=== PATIENT | male | born 1980 | race Caucasian/White ===

== ENCOUNTER 2016-03-16 05:59 | Emergency (ER) | payer OTHER ==
[~2016-03-16] VITALS: Ht 170.2 cm; Wt 84.0 kg
[~2016-03-16 05:59] MED LIST: IBUP-1542 PO; PHEN177L2 PO; POLY10DR19 RIGHT EYE
[2016-03-16 06:03] VITALS: Ht 170.2 cm; Wt 84.0 kg
[2016-03-16] MEDS ORDERED: ONDANSETRON (ODT) 4 MG TAB ODT STA (06:52)
[2016-03-16] MEDS ORDERED: MECLIZINE 12.5 MG TAB PO ONE (07:00)
[2016-03-16] MEDS ORDERED: ONDA4TAB14 PO (07:07)
[2016-03-16] MEDS ORDERED: MECL12.574 PO (07:07)
--- NOTE | 2016-03-16 07:21 | ERD ---
ER Documentation Chief Complaint Date/Time DATE: 03/16/16 TIME: 07:18 Chief Complaint DIZZINESS WITH SHAKING FELL THIS MORNING AT 0430 am HPI This is a 35-year-old male presenting to the emergency department complaining of dizziness since 430 this morning. Patient states that he feels as if the room is spinning when he turns his head. He admits to having nausea. Denies any tinnitus or headache. He states that he also had a few episodes of feeling shaky that lasted a few minutes. Patient denies any vomiting or diarrhea. Denies any neuro deficits. ROS All systems reviewed and are negative except as per history of present illness. 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 12/18/15 Polymyxin B Sulfate-TMP* (Polymyxin B-TMP Eye Drops*) 10 Ml Drops, 1 DROP RIGHT EYE QID for 7 Days, EA Prov:VAUGHN PATEL NP 05/24/15 Reported Medications [none] Unknown Strength No Conflict Check 05/24/15 Allergies Allergies: Coded Allergies: No Known Allergy (Unverified , 05/24/15) PMhx/Soc History of Surgery: No Anesthesia Reaction: No Hx Neurological Disorder: No Hx Respiratory Disorders: No Hx Cardiac Disorders: No Hx Psychiatric Problems: No Hx Miscellaneous Medical Probl: No Hx Alcohol Use: Yes (OCCASIONAL) Hx Substance Use: No Hx Tobacco Use: No Physical Exam Vitals Vital Signs Date Time Temp Pulse Resp B/P Pulse Ox O2 Delivery O2 Flow Rate FiO2 03/16/16 06:03 98.3 67 20 134/82 99 Physical Exam GENERAL: well-developed/well-nourished, in no apparent distress, non-toxic appearing Patient felt dizziness when turning his HENT: NC/AT, bilateral tympanic membrane is normal with good cone of light, nares patent, oropharynx clear without exudates EYES: Conjunctiva normal, PERRLA, EOMI, no nystagmus noted NECK: Supple, no lymphadenopathy PULM: CTA bilaterally, no rales, rhonchi, or wheezing heard CV: Normal S1S2, RRR, good capillary refill GI: Soft, non-distended, normal bowel sounds, non-tender BACK: No midline tenderness, no masses, No CVAT EXT: No clubbing, cyanosis, or edema NEURO: Alert and orientated to person, place, and time. CN II-IIX intact. Gait and coordination were normal. Hand car restorer strength were equal and within normal limits SKIN: Intact, normal turgor PSYCH: Normal mood and mentation, patient denied SI Results 24 hrs Current Medications Medications (Trade) Dose Ordered Sig/Michelle Route PRN Reason Start Time Stop Time Status Last Admin Dose Admin Meclizine HCl (Antivert) 25 mg ONCE ONCE PO 03/16/16 07:00 03/16/16 07:01 DC 03/16/16 06:59 Ondansetron HCl (Zofran Odt) 8 mg ONCE STAT ODT 03/16/16 06:52 03/16/16 06:53 DC 03/16/16 06:59 Procedures/MDM MDM: 35-year-old male presents to the ER with vertigo. My clinical suspicion for benign paroxysmal positional vertigo is high due to physical examination. Symptoms were reproduced with movement of head. My other differentials include but not limited to include labyrinthitis, vestibular neuritis, Mnire's disease , acoustic neuroma, otitis media and central causes such as vestibular migraine , brainstem ischemia, and multiple sclerosis. Patient did not have neurological symptoms, headaches, tinnitus or hearing loss. I do not think a CT scan is necessary at this time, as I believe the risks outweigh the benefits since symptoms are most consistent with benign positional vertigo. However, I have given strict precautions to return to the ER if condition is not improving as expected or if condition worsens. In the ED, patient was given Antivert 25mg and Zofran 8mg ODT. DISPOSITION: hemodynamically stable. I have discussed the pathology of the condition. Prescriptions Antivert and Zofran have been given. I have discussed to see a primary care physician for follow-up examination and management. Discussed to return to the ER if condition worsens or not improves as expected. Patient expressed that they agreed and understood this plan. Departure Diagnosis: Primary Impression: Vertigo Condition: Stable Patient Instructions: Inner Ear Problems: Causes of Dizziness (Vertigo), Benign Positional Vertigo, Vertigo, Unspecified Additional Instructions: FOLLOW UP WITH YOUR PRIMARY CARE PHYSICIAN TOMORROW.Return to this facility if you are not improving as expected. Take all medicines as directed. Return to this facility if you are not improving as expected. AMANDO BRUNSON PA-C Mar 16, 2016 07:21
== END 2016-03-16 07:54 | disposition home or self-care (01) ==
LOC: FTE 05:59
DX: R42 Dizziness and giddiness (principal); R11.0 Nausea
CPT/HCPCS: Z7502; Z7610; 99283

== ENCOUNTER 2016-12-25 22:17 | Emergency (ER) | payer SELFPAY ==
[~2016-12-25] VITALS: Ht 177.8 cm; Wt 87.5 kg
[~2016-12-25 22:17] MED LIST changes: +MECL12.574 PO; +ONDA4TAB14 PO
[2016-12-25 22:38] VITALS: Ht 177.8 cm; Wt 87.5 kg
== END 2016-12-26 02:02 | disposition left against medical advice (07) ==
LOC: E/R 22:17
DX: Z53.21 Procedure and treatment not carried out due to patient leaving prior to being seen by health care provider (principal)